=== PATIENT | female | born 2005 | race Caucasian/White ===

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

== ENCOUNTER 2024-07-17 08:57 | Outpatient (CLI) | payer BC, SELFPAY ==
--- NOTE | 2024-07-17 09:15 | CRLHL7_ITS ---
For Patients: As a result of the Cures Act, medical imaging exams and procedure reports are released immediately into your electronic medical record. You may view this report before your referring provider. If you have questions, please contact your health care provider. LEFT BREAST ULTRASOUND CLINICAL HISTORY: LEFT breast lump. COMPARISON: None. TECHNIQUE: Real-time ultrasound imaging of the LEFT breast with imaging documentation. FINDINGS: Targeted sonogram LEFT breast 11 o`clock 5 cm from the nipple performed. In this location, there is a solid circumscribed hypoechoic mass with increased through-transmission measuring 2.9 x 1.6 x 2.5 cm. No suspicious vascularity. IMPRESSION: Benign fibroadenoma LEFT breast 11 o`clock 5 cm from the nipple measuring 2.9 cm. RECOMMENDATIONS: Surgical consultation recommended for consideration of surgical removal. Results and recommendations were discussed with the patient at the time of the exam. A lay language report of this examination will be provided to the patient. BI-RADS Category 2: Benign Dictated by Arjun Andino MD @ 07/17/2024 9:52:10 AM /Dictated by: Arjun Andino MD @ 07/17/2024 9:52:00 AM (Electronically Signed)
== END 2024-07-17 08:58 | disposition home or self-care (01) ==
LOC: US 08:58
PROVIDERS: PCP Physician Assistant Medical; Visit Provider Registered Nurse
DX: N63.20 Unspecified lump in the left breast, unspecified quadrant (principal); D24.2 Benign neoplasm of left breast
CPT/HCPCS: 76642

== ENCOUNTER 2024-09-03 07:44 | Day surgery (SDC) | payer BC, SELFPAY ==
[2024-09-03 07:50] VITALS: BP 121/68; PULSE 87; RESP 16; TEMP 36.9; O2SAT 99; BMI 25.0
[2024-09-03] MEDS: LACTATED RINGERS 1000 ML 1,000 ML 100 ML IV (07:50)
[2024-09-03 08:09] LABS: Ur HCG Qualitative* Negative (Negative)
[2024-09-03] MEDS: SODIUM CHLORIDE 0.9 % (FLUSH) 10 ML SYRINGE IVF (08:18)
--- NOTE | 2024-09-03 08:50 | W.PM.H&PU ---
History & Physical Update History & Physical Update H&P Reviewed and patient assessed: The following changes are noted below H&P Updates: [place] is here today for left breast lumpectomy. We did discuss her family history once again. She was unable to get any significant updated information, however her stepmother accompanies her today and states that her paternal grandmother did have a prophylactic bilateral mastectomy secondary to positive genetic testing. Does not have any more information beyond this. I encouraged her to get more detailed records and then we can consider referring her for genetic counseling though again screening would not start until she is 24. She is agreeable with this plan
--- NOTE | 2024-09-03 08:52 | PM.GSPRC ---
Operative Note Date of procedure: 09/03/24 Pre-op diagnosis: Left breast mass, 11 o'clock Post-op diagnosis: Same Type of Procedure: Excisional biopsy, left breast mass Indications: The patient is a 18-year-old female who noticed a lump in her left breast in the past 2 months. Workup showed a 2.9 cm mass at 11 o'clock, 5 cm from the nipple which appeared consistent with a benign fibroadenoma. She has a strong family history of breast cancer, on both sides and because of this preferred excision. We discussed risks and benefits and the patient agreed to proceed. Procedure Description: After discussing the risks and benefits of the procedure, the patient signed informed consent.? The operative site was marked and the patient was brought to the operating room and placed on the operating table in supine position.? Care was taken to pad the patient's pressure points.?? The patient was then given sedation by anesthesia.?? The operative site was then prepped and draped in the usual sterile fashion.? A time-out was then performed. Local anesthetic was injected into the skin and subcutaneous tissue at the nipple-areolar border in the upper aspect of the breast. An incision was then created along the border of the areola. Dissection was taken down into the subcutaneous fat using cautery. Subcutaneous plane was then created until the mass was encountered. A well-circumscribed fibroadenoma was found. This was dissected free from the surrounding breast tissue. This was then sent to pathology. Hemostasis was achieved with cautery. The wound was then closed with 3-0 Vicryl dermal and 4-0 Monocryl running subcuticular suture. Sterile dressings were then applied. ? The patient was then woken and transported to the recovery area in stable condition. ? The patient tolerated the procedure well. Findings: 3 cm fibroadenoma Anesthesia: MAC Surgeon: Margie Villatoro MD Estimated blood loss (mL): 5 Specimen: Other Additional Specimen Information: Left breast mass Condition: stable Disposition: same day
[2024-09-03] MEDS: CEFAZOLIN 1 GM inj IVP (09:01)
[2024-09-03] MEDS: LIDOCAINE 1% MDV 10 ML INJECTION (09:10)
[2024-09-03] MEDS: BUPIVACAINE 0.25% 30 ML 10 ML INJECTION (09:10)
--- NOTE | 2024-09-03 09:14 | SUR.OPER ---
PATIENT QUESTIONS ANSWERED SATISFACTORILY PREOPERATIVELY. PATIENT BROUGHT TO OR #3 PER CART. Patient positioned supine on OR #3 bed. The perioperative team supported arms bilaterally on arm boards. Final approval of positioning by surgeon.
[2024-09-03 09:45] VITALS: BP 107/72; PULSE 81; RESP 16; TEMP 36.2; O2SAT 99
[2024-09-03 10:00] VITALS: BP 122/84; PULSE 80; RESP 18; O2SAT 100
--- NOTE | 2024-09-03 10:13 | P.ANES_ITS ---
Anesthesia Charges Start Date/Time Anesthesia Start Date: 09/03/24 Anesthesia Start Time: 08:56 Stop Date/Time Anesthesia Stop Date: 09/03/24 Anesthesia Stop Time: 09:49 Coding CPT Codes CPT Codes: ANESTH SKIN EXT/PER/ATRUNK - 39097 ([id number]) QZ - OIL DISPATCHER SVC W/O BANK AND SAVINGS SECURITIES TRADER BY , P1 - NORMAL HEALTHY PATIENT
--- NOTE | 2024-09-03 10:13 | W.ANESCHARGE ---
Anesthesia Charges Start Date/Time Anesthesia Start Date: 09/03/24 Anesthesia Start Time: 08:56 Stop Date/Time Anesthesia Stop Date: 09/03/24 Anesthesia Stop Time: 09:49 Coding CPT Codes CPT Codes: ANESTH SKIN EXT/PER/ATRUNK - 39195 ([id number]) QZ - VISUAL MANAGER SVC W/O FIBERGLASS FINISHER BY , P1 - NORMAL HEALTHY PATIENT
[2024-09-03 10:15] VITALS: BP 119/85; PULSE 73; RESP 16; O2SAT 100
[2024-09-03 10:30] VITALS: BP 120/78; PULSE 73; RESP 16; TEMP 36.6; O2SAT 100
== END 2024-09-03 10:45 | disposition home or self-care (01) ==
LOC: OR 07:45
PROVIDERS: Nurse Anesthetist, Certified Registered; Visit Provider Surgery
PROC: (CPT 19120; principal; 2024-09-03 08:30)
DX: D24.2 Benign neoplasm of left breast (principal)
CPT/HCPCS: 19120; 00400; 81025; 88305; J2003; J0665; J0690; J1100; J2250; J2405; J2704; J3010; J3490; J7120

== ENCOUNTER 2025-05-25 15:40 | Emergency (ER) | payer BC, SELFPAY ==
--- OUTSIDE RECORDS SUMMARY | 2025-04-12 23:59 | XMS_ITS | Clinical Summary ---
Author Organization [facility] Address [address] [place] [id number] Care Team Providers Care Loan Workout Officer Name Role Phone Jasson Hernandez Primary Care Physician Encounter Date(s): 04/12/25 - 04/12/[address] [phone] Discharge Disposition: Home or Self Care Referring Physician: Chidi Garcia MD Encounter Type: Prior Authorization Allergies, Adverse Reactions, Alerts No Known Medication Allergies Discharge Medications diazePAM (Valtoco 10 mg Dose nasal spray) Status: Ordered Start Date: 04/11/24 10 Milligrams Nasal once as needed Seizure activity >3 minutes, or per home. Refills: 2. Ordering provider: [facility] [id number] [place], [place] [id number] (Nexplanon 68 mg subcutaneous implant) Status: Ordered Start Date: 10/22/21 1 Each SubCutaneous once. Refills: 0. Ordering provider: Chidi Garcia MDlamoTRIgine (LaMICtal XR 300 mg oral tablet, extended release) Status: Ordered Start Date: 04/11/24 1 tabs Oral every day. Refills: 11. Ordering provider: [facility] [id number] [place], [place] [id number] Problem List ConditionConfirmationCourseEffective DatesStatusHealth StatusInformantHeadache ConfirmedActivePartial idiopathic epilepsyConfirmedActive Immunizations Given and Recorded VaccineDateStatusRefusal Reasonvaricella virus vaccine02/05/21Recorded meningococcal conjugate vaccine02/05/21Recordedmeningococcal conjugate vaccine 12/19/15Recordedinfluenza virus vaccine, rthpfsgbunp30/1/20Recordedinfluenza virus vaccine, /15/19Recordedinfluenza virus vaccine, inactivated 02/07/14Recordedinfluenza virus vaccine, /17/12Recordedinfluenza virus vaccine, inactivated06/11/09Recordedinfluenza virus vaccine, inactivated 08/17/06Recordedhuman papillomavirus vaccine12/28/16Recordedhuman papillomavirus vaccine12/19/15Recordedtetanus/diphtheria/pertussMUL.ORD![id number]/Recorded measles/mumps/rubella/varicella vaccine02/10/10Recorded measles/mumps/rubella/varicella vaccine09/07/05Recorded diphtheria/tetanus/pertussis,acel/polio02/10/10Recordedhepatitis A pediatric vaccine08/28/07Recordedhepatitis A pediatric vaccine08/17/06Recordedpneumococcal 7-valent vaccine08/17/06Recordedpneumococcal 7-valent vaccine09/07/05Recorded pneumococcal 7-valent nnublyc47/6/05Recordedpneumococcal 7-valent vaccine04 Recordedhaemophilus b conj (PRP-OMP) vaccine08/17/06Recordedhaemophilus b conj (PRP-OMP) vaccine09/07/05Recordeddiphtheria/tetanus/pertussMUL.ORD![id number]/17/12 Recordeddiphtheria/tetanus/pertussMUL.ORD![id number]/09/09Recordedpoliovirus vaccine, inactivated09/07/05Recordeddiphth/tetanus/pertussis,acel/hepB/polio 03/11/05Recordeddiphth/tetanus/pertussis,acel/hepB/polio04Recordedhepatitis B pediatric vaccine04Recorded Social History Social History TypeResponseSmoking StatusNever (less than 100 in lifetime) entered on: 04/11/24Birth SexSex RepresentationFemale (finding) Patient Care team information Personnel Name: Jasson Hernandez MD Address: [address] Telecom:
[2025-05-25 15:45] VITALS: BP 116/74; PULSE 84; RESP 16; TEMP 36.8; O2SAT 99
--- NOTE | 2025-05-25 16:13 | ED.EYEPROB ---
HPI - Eye Problem General Time Seen by Provider: 16:13 Date Seen: 05/25/25 Chief complaint: Eye Problems Stated complaint: Eye Pain, L Time Seen by Provider: 05/25/25 15:52 Source: patient and RN notes reviewed Mode of arrival: ambulatory Limitations: no limitations History of Present Illness HPI Narrative: This 19-year-old female is coming in with complaint of a stye to her left lower eyelid that started . She had similar problem before. She has noted no fevers or chills, has no visual change. There is some mattering and crusting of the lower eyelid. She requested a cream from nursing staff. She wants this to be gone by [place]. She is not having a lot of pain but does note it is sore. She is here with her dad. Her problem list is reviewed, has had a breast lesion removed, general anxiety disorder, bipolar disorder, major depression chronic, epilepsy. Related Data Home Medications ?Medication ?Instructions ?Recorded ?Confirmed etonogestrel 68 mg subdermal 1 implant subdermal ONCE 02/15/23 01/15/25 implant (Nexplanon) ferrous sulfate 325 mg (65 mg 325 mg PO QDAY 02/15/23 01/15/25 iron) tablet lamotrigine 300 mg tablet,extended 300 mg PO QDAY 08/14/24 01/15/25 release 24 hr Previous Rx's ?Medication ?Instructions ?Recorded amoxicillin 875 mg-potassium 1 tab PO BID #10 tabs 05/25/25 clavulanate 125 mg tablet gentamicin 0.3 % eye drops 2 drp ophthalmic (eye-left) QID 5 05/25/25 days #5 mL Allergies Allergy/AdvReac Type Severity Reaction Status Date / Time No Known Drug Allergies Allergy Verified 05/25/25 15:50 Review of Systems Narrative: As per HPI. PFSH PFS Medical History Fibroadenoma of left breast ?D24.2 - Benign neoplasm of left breast (ICD-10) Grand mal seizure disorder ?G40.409 - Other generalized epilepsy and epileptic syndromes, not intractable, without status epilepticus (ICD-10) Breast mass ?N63.0 - Unspecified lump in unspecified breast (ICD-10) Fibroadenoma of breast ?D24.9 - Benign neoplasm of unspecified breast (ICD-10) Major depression, chronic ?F32.9 - Major depressive disorder, single episode, unspecified (ICD-10) Bipolar disorder ?F31.9 - Bipolar disorder, unspecified (ICD-10) Irregular menses ?N92.6 - Irregular menstruation, unspecified (ICD-10) Abnormal uterine bleeding (AUB) ?N93.9 - Abnormal uterine and vaginal bleeding, unspecified (ICD-10) Family history of breast cancer ?Z80.3 - Family history of malignant neoplasm of breast (ICD-10) Generalized anxiety disorder ?F41.1 - Generalized anxiety disorder (ICD-10) Anxiety and depression ?F41.9 - Anxiety disorder, unspecified (ICD-10) ?F32.A - Depression, unspecified (ICD-10) Epilepsy ?G40.909 - Epilepsy, unspecified, not intractable, without status epilepticus (ICD-10) Surgical History H/O breast surgery (~09/18/24) ?Z98.890 - Other specified postprocedural states (ICD-10) Nexplanon in place ?Z97.5 - Presence of (intrauterine) contraceptive device (ICD-10) No pertinent past surgical history ?Z78.9 - Other specified health status (ICD-10) Family History Mother Uterine cancer Breast cancer, Onset Age: 35 Bipolar disorder Depression with anxiety Paternal Grandmother Breast cancer, Onset Age: 55 Maternal Grandmother Breast cancer, Onset Age: 55 Cancer of kidney Family/Other Breast cancer Other Diabetes Social History Narrative: Single, live in boyfriend, 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 [place], no kids, lives [place] boyfriend in [place] Lifetime nonsmoker 1-2 alcoholic drinks a week Exercise 10 hours a week weightlifting No drug use What is your current living situation?: I presently have a place to live Problems where you live: no known problems In the past 12 months, utilities in danger of being shut off: no In past 12 months, lack of transportation kept you from medical appts, meetings, work, or getting things needed for daily living: no In the past 12 mos, have been you worried that your food would run out before you had money to buy more?: never true In the past 12 mos, the food you bought just didn't last and you didn't have money to buy more?: never true Smoking Status: Never smoker Do you use any of these nicotine containing products: None How often do you have a drink containing alcohol: never AUDIT-C Alcohol total score: 0 Non-prescribed substance use: denies use Caffeine: Yes How often does anyone, including family, friends and others, physically hurt you: never How often does anyone, including family, friends and others, insult or talk down to you: rarely How often does anyone, including family, friends and others, threaten you with harm: never How often does anyone, including family, friends and others, scream or curse at you: rarely Are you using contraception or practicing any form of control: Yes Health Related Social Needs: Other personal risk factors, not elsewhere classified (Z91.89) Exam Const: Vital Signs, click to edit/add: Vital Signs - 24 hr 05/25/25 15:45 Temperature 98.3 F Pulse Rate [Pulse Oximeter] 84 Respiratory Rate 16 Blood Pressure [Ri ght Upper Arm] 116/74 Pulse Oximetry 99 Oxygen Delivery Me thod Room Air This 19-year-old female is alert, interactive, no apparent distress. She is seen in exam room for, sitting comfortably in the chair. Pupils equal round reactive, sclera clear. Her left lower eyelid just the left of midline has an erythematous raised swollen area with some generalized soft tissue swelling around it. When I sergio the lid, there is no visible draining tract or protuberant area. She has a little crusting along the left lower eyelid. The swelling seems to be isolated to that plan. I can palpate the area, mild tenderness but no fluctuance. Rest of her face is unaffected. Documenting provider has reviewed patient's vital signs: yes Course Course ED Course: This does have significant swelling, the area is about 4-5 mm in diameter and is definitely large and some surrounding soft tissue erythema. I would favor oral antibiotics and topical drops with warm compresses. They understand if it is worsening, will need to see an eye doctor. We will try this, hopefully it will resolve her symptoms but she will need to seek re-evaluation and hopefully with an eye doctor if worsening or not improving. Vital Signs Vital signs: Initial Vital Signs Temperature 98.3 F 05/25/25 15:45 Temperature Source Temporal Artery Scan 05/25/25 15:45 Pulse Rate 84 05/25/25 15:45 Respiratory Rate 16 05/25/25 15:45 Blood Pressure 116/74 05/25/25 15:45 Blood Pressure Mean 88 05/25/25 15:45 Blood Pressure Position Sitting 05/25/25 15:45 Pulse Oximetry 99 05/25/25 15:45 Oxygen Delivery Method Room Air 05/25/25 15:45 Vital Signs Temperature 98.3 F 05/25/25 15:45 Pulse Rate 84 05/25/25 15:45 Respiratory Rate 16 05/25/25 15:45 Blood Pressure 116/74 05/25/25 15:45 Pulse Oximetry 99 05/25/25 15:45 Oxygen Delivery Method Room Air 05/25/25 15:45 Temperature 98.3 F 05/25/25 15:45 Pulse Rate 84 05/25/25 15:45 Respiratory Rate 16 05/25/25 15:45 Blood Pressure 116/74 05/25/25 15:45 Pulse Oximetry 99 05/25/25 15:45 Oxygen Delivery Method Room Air 05/25/25 15:45 Discharge Plan Discharge Clinical Impression: Hordeolum Qualifiers: Hordeolum type: unspecified type Laterality: left Eyelid: lower Qualified Code(s): H00.015 - Hordeolum externum left lower eyelid Patient Disposition: Home, Self-Care Condition: Stable Instructions: [place] (ED) Additional Instructions: Given how large this is in the redness in the tissue, will treat with oral antibiotics as well as topical antibiotics. Warm compresses are essential in treating this, need to try to use warm compress to the lower eyelid as much as possible while awake until improving. if this is not improving in the next couple days without lying treatment, have concerns for worsening, recommend that you try to see an eye doctor is quickly as possible. Sometimes these actually need to be opened and would recommend this under the supervision of an eye doctor. Prescriptions: New amoxicillin-pot clavulanate 875-125 mg tablet 1 tab PO BID Qty: 10 0RF gentamicin 0.3 % drops 2 drp ophthalmic (eye-left) QID 5 Days Qty: 5 0RF No Action lamotrigine 300 mg tablet extended release 24hr 300 mg PO QDAY ferrous sulfate 325 mg (65 mg iron) tablet 325 mg PO QDAY Nexplanon 68 mg implant 1 implant subdermal ONCE Rx Instructions: as a single dose Follow Up/Referrals: Stefanie Bocanegra PA-C [Primary Care Provider, Family Practice] Stand Alone Forms: [facility] Inst[facility]
--- OUTSIDE RECORDS SUMMARY | 2025-05-25 16:17 | XMS_ITS | Clinical Summary ---
Author Organization [facility] Address [address] [place] [address] Care Team Providers Care Provider Enrollment Specialist Name Role Phone None Reported, Pcp Primary Care Provider Unavail able Source Comments Patient records contain information from all sites at [facility]. For routine questions regarding patient records, call [phone] during business hours, M-F 8:00 AM - 5:00 PM Central Time. Record requests for emergency care only can be directed to [phone] at any time.[facility] Allergies No known active allergies Medications MedicationSigDispense QuantityRefillsLast FilledStart DateEnd DateStatus lamoTRIgine ER (LaMICtaL XR) 300 mg 24 hr tablet Take 1 tablet by mouth daily.5Active emtricitabine-tenofovir (Truvada) 200-300 mg per tablet Take 1 tablet by mouth daily for 5 days. 5 tablet 5Active dolutegravir (Tivicay) 50 mg tablet Take 1 tablet (50 mg total) by mouth daily for 5 days. 5 tablet 5Active Active Problems ProblemNoted DateDiagnosed FmslSegvvun13/20/2021 Social History Tobacco UseTypesPacks/DayYears UsedDateSmoking Tobacco: NeverSmokeless Tobacco: NeverAlcohol UseStandard Drinks/WeekCommentsYes0 (1 standard drink = 0.6 oz pure alcohol)OccasionalCommentsNoSex and Gender InformationValueDate Recorded Sex Assigned at BirthNot on fileLegal LdkDcevgf27/20/2021 3:39 PM CDTGender IdentityNot on fileSexual OrientationNot on file Last Filed Vital Signs Vital SignReadingTime TakenCommentsBlood Drqmbhoe103/7902/11/2025 11:14 PM CDT Cmrre707002/11/2025 11:14 PM ABCJpbpyyradkl41.6 ??C (97.9 ??F)02/11/2025 11:14 PM CDTRespiratory Cpre519602/11/2025 11:56 PM CDTOxygen Slyignpkdt480%02/11/2025 11:14 PM CDTInhaled Oxygen Concentration--Mbgosj67 kg (163 lb 2.3 oz)02/11/2025 11:13 PM ATPTxnoaw280.6 cm (5' 6)02/11/2025 1:26 AM CDTBody Mass Index26.33 02/11/2025 1:26 AM CDT Plan of Treatment Health MaintenanceDue DateLast DoneCommentsHearing Screening during Well Child Visit2004TB Screening during Well Child Visit week Well Child Check-Up month Well Child Check-Up month Well Child Check-Up month Well Child Check-Up month Well Child Check-Up month Well Child Check-Up month Well Child Check-Up year Well Child Check-Up month Well Child Check-Up year Well Child Check-Up08/08/2007Well Child Check-Up Completed in Past Year year Well Child Check-Up year Well Child Check-Up year Well Child Check-Up year Well Child Check-Up year Well Child Check-Up year Well Child Check-Up year Well Child Check-Up year Well Child Check-Up08/07/2018Vision Screening during Well Child Visit year Well Child Check-Up year Well Child Check-Up year Well Child Check-Up year Well Child Check-Up08/08/2023epression Screening (Annual PHQ-2) year Well Child Check-Up08/07/2024[facility] Child Check-Up ([facility])5COVID-19 Vaccine (3 - season), 06/22/2022Influenza Vaccine (#1)511/06/2019, 04/06/2020, 05/20/2019, Additional history existsDTaP,Tdap,and Td Vaccines (7 - Td or Tdap)12/18/2025 12/19/2015, 02/10/2010, 08/17/2006, Additional history existsHepatitis B BaemyqsoRjnnrbmta15/06/2005, 2004, 2004, Additional history exists Pneumococcal vaccine (0-49 years)Aged Out08/17/2006, 2005, 03/11/2005, Additional history existsNo longer eligible based on patient's age to complete this topicIPV QjjhynrsDyeonsuhu13/07/2010, 2005, 03/11/2005, Additional history existsHPV QcxrpnjpHnxwfrjkn14/25/2017, 12/28/2016, 12/19/2015, Additional history existsMeningococcal MemitlpPgilvgmmt84/02/2021, 02/05/2021, 12/19/2015, Additional history existsAnemia/Iron Deficiency Screening During Well Child Visit (if High Risk Menstruating Female)Pchvrpdaz33/20/2021 Procedures Procedure NamePriorityDate/TimeAssociated DiagnosisCommentsCBC WITH DIFFERENTIAL, BSTAT02/23/2021 4:21 PM CDT from Last 3 Months or Most Recently Relevant to Health Maintenance Results * (ABNORMAL) CBC with Differential, Blood (02/23/2021 4:21 PM CDT)ComponentValue Ref RangeTest MethodAnalysis TimePerformed AtPathologist SignatureHemoglobin 10.7(L)11.9 - 14.8 g/dL02/23/2021 4:45 PM OERBJVVWzuxmselsv52.0(L)35.0 - 43.0 %02/23/2021 4:45 PM CDTRDWGErythrocytes4.193.80 - 5.00 x10(12)/L02/23/2021 4:45 PM AGQTPUNHQB67.1(L)82.5 - 98.0 fL02/23/2021 4:45 PM CDTRDWGRBC Distrib Width15.6(H)11.4 - 13.5 %02/23/2021 4:45 PM CDTRDWGPlatelet Fdcqr893178 - 362 x10(9)/L02/23/2021 4:45 PM CDTRDWGLeukocytes7.13.8 - 10.4 x10(9)/L02/23/2021 4:45 PM CDTRDWGNeutrophils5.432.00 - 7.40 x10(9)/L02/23/2021 4:45 PM CDTRDWG Lymphocytes1.181.00 - 3.20 x10(9)/L02/23/2021 4:45 PM CDTRDWGMonocytes0.490.20 - 0.80 x10(9)/L02/23/2021 4:45 PM CDTRDWGEosinophils<0.03(L)0.10 - 0.20 x10(9)/L02/23/2021 4:45 PM CDTRDWGBasophils<0.030.00 - 0.10 x10(9)/L02/23/2021 4:45 PM CDTRDWGSpecimen (Source)Anatomical Location / LateralityCollection Method / VolumeCollection TimeReceived TimeBlood (Blood, Venous)02/23/2021 4:21 PM CDT02/23/2021 4:28 PM CDT Narrative Authorizing ProviderResult TypeResult StatusMichaequirino Garcia M.D.LAB BLOOD ADD-ONFinal ResultPerforming OrganizationAddressCity/State/ZIP CodePhone Number [facility] [address] [phone], [facility]DW[facility] [place] [address] [phone] from Last 3 Months or Most Recently Relevant to Health Maintenance Insurance Care Teams Team MemberRelationshipSpecialtyStart DateEnd Date None Reported, Pcp PCP - Ldtbivp84/8/24
== END 2025-05-25 16:46 | disposition home or self-care (01) ==
LOC: ED 16:42
PROVIDERS: Emergency Provider Family Medicine; PCP Physician Assistant Medical
DX: H00.015 Hordeolum externum left lower eyelid (principal)
CPT/HCPCS: 99282; 99283